=== PATIENT | female | born 1970 | race Caucasian/White ===

== ENCOUNTER → 2020-09-11 | Outpatient (CLI) | payer OTHER ==
[~2020-09-11] MED LIST: BREO ELLIPTA 11 EACH INH; CLARITIN-D 241 EAC1 PO; FUROSEMIDE 40 M40 M1 PO; LINZESS290 MCG PO; MELOXICAM15 MG PO; OMEPRAZOLE40 MG PO; POTASSIUM CHLO20 ME2 PO; SINGULAIR 10 MG10 M1 PO
== END ==
LOC: M.LAB 11:52
PROVIDERS: ATTEND Surgery
DX: Z01.812 Encounter for preprocedural laboratory examination (principal); Z20.828 Contact with and (suspected) exposure to other viral communicable diseases

== ENCOUNTER → 2020-09-17 | Day surgery (SDC) | payer OTHER ==
[~2020-09-17] MED LIST changes: +OXYCODONE HCL 55 MG PO
--- NOTE | ~2020-09-17 | OP ---
[address] [address] OPERATIVE REPORT Name: LENIN LOPEZ Room: [facility]#: [id number] Admission: 09/17/20 Attend Phys: Krish Rodríguez DO Discharge: Date of : 70 Report #: [id number] THIS REPORT FOR: cc: Irena Goldstein Linda J. DO ~ Krish Rodríguez DO DICTATED BY: Ethan Garcia DO DATE OF SERVICE: 09/17/2020 PREOPERATIVE DIAGNOSIS: Symptomatic cholelithiasis. POSTOPERATIVE DIAGNOSIS: Symptomatic cholelithiasis. SURGEON: Krish Rodríguez DO HYDRAULIC LIFT DRIVER: Ethan Garcia, PGY5 and ____. OPERATION PERFORMED: Laparoscopic cholecystectomy. ANESTHESIA: General and TAP block by Anesthesia. ESTIMATED BLOOD LOSS: 20 mL. SPECIMEN: Gallbladder. COMPLICATIONS: None. INDICATIONS: The patient is a 50-year-old female with postprandial right upper quadrant pain. She was found on imaging to have cholelithiasis. She was informed of the risks and benefits of laparoscopic cholecystectomy with risks including but not limited to bleeding, infection, bile duct injury, bowel injury, hernia formation, need for open procedure, potential need for reoperation and chronic diarrhea. She understood the risks and decided to proceed with surgery. DESCRIPTION OF PROCEDURE: After informed consent was obtained, the patient was brought to the operating room and placed in supine position. SCDs were on and running. Preoperative antibiotics were given. General anesthesia was administered with an ET tube. Bilateral transversus abdominis plane blocks were placed by anesthesia. The patient was prepped and draped in the usual sterile fashion. A surgical pause was held to confirm proper patient and procedure. Vertical incision was made with 11 blade just superior to the umbilicus. Dissection was carried through the subcutaneous fat using cautery. Once the fascia was identified, it was incised using cautery and elevated with [address] [place] [address] OPERATIVE REPORT Name: JOHNLENIN Nisha Room: [facility]#: [id number] Admission: 09/17/20 Attend Phys: Krish Rodríguez, DO Discharge: Date of : 70 Report #: [id number] clamps. Peritoneum was bluntly entered using a Valerie, 0 [address] was used to place superior and inferior stay sutures. The Natalya trocar was inserted into the abdomen. The abdomen was insufflated. Camera was introduced. Attention was turned towards the right upper quadrant. The patient was positioned head up, right side up. The gallbladder was identified and was in a somewhat lateral position. A 5 mm port was placed in the epigastrium under direct visualization. The gallbladder was grasped and retracted cephalad over the liver. The gallbladder did not appear acutely inflamed; however, it did have a few thin filmy omental adhesions. The two additional ports in the right upper quadrant were placed under direct visualization. The gallbladder was elevated over the liver. ICG had been injected prior to the case and fluorescence imaging was used to identify the structures. The cystic duct and the common bile duct were clearly identified using the fluorescence. Normal light imaging was used for the dissection. Peritoneum was scored using cautery over the hepatocystic triangle. This plane was developed laterally and medially. Blunt dissection with a [place] was used to circumferentially dissect the cystic duct and the cystic artery until the critical view of safety was obtained with only two structures entering the gallbladder, the cystic duct and cystic artery. Weck Hem-o-porfirio clips were used to doubly clip the cystic duct and singly clipped the cystic artery, both were divided using laparoscopic nataliia. The gallbladder was elevated and dissected free from the liver bed using cautery. There was some small oozing from the remnant of fibrofatty tissue superior to the duct and artery. This was cauterized for hemostasis. The gallbladder was completely dissected free from the liver bed and placed within an EndoCatch bag and placed aside. Cautery was used for hemostasis. Right upper quadrant was thoroughly suctioned and irrigated. The cystic duct stump was dry. The cystic artery stump was dry. There was no bile leak or hemorrhage. Photographs were taken. The patient was positioned supine. Right upper quadrant was again suctioned. The ports were removed under direct visualization. The abdomen was desufflated. Specimen was removed through the umbilical incision. Previous stay sutures were elevated. Two additional nqixko-oh-tfgji using 0 Vicryl was used to close the fascia. The umbilical incision was closed in layered fashion using 3-0 Vicryl and 4-0 Monocryl. Remainder of skin was closed using 4-0 Monocryl. Wounds were cleansed and dressed with Dermabond. The patient was emerged from anesthesia and transferred to PACU in stable condition. All counts were correct. By: [id number] Rodríguez DO /tatiana
[2020-09-17 06:42] LABS: HEMATOCRIT 40.3 % (37.0-47.0); HEMOGLOBIN 13.5 gm/dL (12.0-15.0)
--- NOTE | 2020-09-23 18:06 | PATH ---
[facility] [address] [place] [address] PATHOLOGY RPT PROCEDURE Name: ESPERANZA LOPEZ Room: [facility]#: [id number] Admission: 09/17/20 Date of : 70 Discharge: Report #: [id number] Path Case #: [id number] [facility] Accession Number: [id number] . 01 Material submitted: . gallbladder - GALLBLADDER AND CONTENTS . 01 Clinical history: . CALCULUS OF GALLBLADDER WITH ACUTE CHRONIC CHOLECYSTITIS WITHOUT OBSTRUCTION. . 02 Diagnosis: Gallbladder and contents: - Chronic cholecystitis with cholelithiasis. ([facility]/db; 09/23/2020) LBQ 09/23/2020 1213 Local . 02 Electronically signed: . Carson Reeves MD, Pathologist NPI- [id number] . 01 Gross description: . Received in formalin labeled "Esperanza Lopez, gallbladder and contents" is an intact cholecystectomy specimen measuring 8.2 x 4.5 x 3.7 cm. The serosa is woods-green and smooth and the specimen is opened to reveal green velvety mucosa without polyps or masses. The average wall thickness is 0.1 cm. Multiple yellow-woods bosselated calculi are present within the gallbladder, measuring in aggregate 1.6 x 1.2 x 0.5 cm and ranging from 0.3-0.6 cm in greatest dimension. Kitchen Worker sections of the fundus and body and the cystic duct margin are submitted in A1. ([facility]; 09/19/2020) [facility] 09/19/2020 1303 Local . 02 Pathologist provided ICD-10: K80.10 . 02 CPT . 797385 Specimen Comment: A courtesy copy of this report has been sent to [phone] Specimen Comment: Report sent to Performed at: [address], [place], [place] [id number] MD Olvin Steen MD Phone: [phone] Performed at: 02 [facility] [address], [place], [place] [id number] MD Carson Reeves MD Phone: [phone]
== END | disposition home or self-care (01) ==
LOC: M.SUR
PROVIDERS: ATTEND Surgery
DX: K80.10 Calculus of gallbladder with chronic cholecystitis without obstruction (principal); R10.9 Unspecified abdominal pain; Z98.890 Other specified postprocedural states; Z79.899 Other long term (current) drug therapy; Z88.8 Allergy status to other drugs, medicaments and biological substances